=== PATIENT | male | born 1985 | race Caucasian/White ===

== ENCOUNTER 2019-04-29 05:33 | Emergency (ER) | payer BC ==
[~2019-04-29] VITALS: Ht 180.3 cm; Wt 141.0 kg
[2019-04-29] MEDS ORDERED: MORPHINE SULFATE 4 MG/ML CPJ (NOT FOR IM USE) IV STA (06:49)
[2019-04-29] MEDS ORDERED: SODIUM CHLORIDE 0.9% 1,000 ML IV ONE (06:49)
[2019-04-29] MEDS ORDERED: ONDANSETRON HCL 4MG/2ML INJ IV STA (06:49)
[2019-04-29 07:22] LABS: CLARITY URINE CLEAR (CLEAR); COLOR URINE DK YELLOW (YELLOW); KETONES URINE TRACE (NEGATIVE); LEUKOCYTE ESTERASE URINE NEGATIVE (NEGATIVE); NITRITE URINE NEGATIVE (NEGATIVE); OCCULT BLOOD URINE NEGATIVE (NEGATIVE); PROTEIN URINE 1+ (NEGATIVE); SPECIFIC GRAVITY URINE 1.037 (1.005-1.030); UROBILINOGEN URINE 0.2 E.U./dL (0.2-1.0)
[2019-04-29 07:42] LABS: BASOPHILS % 0.5 % (0.0-2.0); EOSINOPHILS % 1.2 % (0.0-5.0); HEMATOCRIT. 41.2 % (42.0-52.0); HEMOGLOBIN. 14.2 g/dL (14.0-18.0); LYMPHOCYTES % 9.4 % (20.0-50.0); MEAN CORPUSCULAR VOLUME 87.3 fL (80.0-94.0); MEAN PLATELET VOLUME 9.3 fl (7.4-10.4); MONOCYTES % 5.9 % (2.0-8.0); PLATELET 169 x1000/uL (130-400); RED BLOOD CELL COUNT 4.72 mill/uL (4.7-6.1); RED CELL DISTRIBUTION WIDTH 13.1 % (11.6-14.6)
[2019-04-29 07:48] LABS: CHLORIDE 108 mEq/L (98-107)
[2019-04-29 07:50] LABS: INR 1.2; PROTHROMBIN TIME 12.6 sec (9.6-11.0)
[2019-04-29 08:44] VITALS: BP 136/87
== END 2019-04-29 08:44 | disposition home or self-care (01) ==
LOC: ER 05:33
DX: N20.0 Calculus of kidney (principal); N13.0 Hydronephrosis with ureteropelvic junction obstruction; R03.0 Elevated blood-pressure reading, without diagnosis of hypertension
CPT/HCPCS: 36415; 74176; 80053; 81003; 83690; 85025; 85610; 93005; 96361; 96374; 96375; 99285; J2270; J2405; J7030